=== PATIENT | female | born 1975 | race Caucasian/White ===

== ENCOUNTER 2022-11-24 15:54 | Emergency (ER) | payer MEDICAID ==
[~2022-11-24] VITALS: Ht 160 cm; Wt 78.5 kg
[2022-11-24 16:09] VITALS: BP_SYST 132; PULSE 86; RESP 16; TEMP 98; O2SAT 97
[2022-11-24 18:19] LABS: BASOPHILS # (AUTO) 0.2 K/uL (0.0-0.2); BASOPHILS % (AUTO) 1.5 % (0.0-2.0); EOSINOPHILS # (AUTO) 0.2 K/uL (0.0-0.4); EOSINOPHILS % (AUTO) 2.1 % (0.0-4.0); HEMATOCRIT 36.7 % (36-48); HEMOGLOBIN 11.8 g/dL (12.0-16.0); LYMPHOCYTES # (AUTO) 2.8 K/uL (1.0-5.5); LYMPHOCYTES % (AUTO) 26.6 % (20.5-51.5); MEAN CORPUSCULAR HEMOGLOBIN 28 pg (27-31); MEAN CORPUSCULAR HGB CONC 32 % (32-36); MEAN CORPUSCULAR VOLUME 87 fL (79.0-98.0); MONOCYTES # (AUTO) 0.8 K/uL (0.0-1.0); MONOCYTES % (AUTO) 7.2 % (1.7-9.3); NEUTROPHILS # (AUTO) 6.6 K/uL (1.8-7.7); NEUTROPHILS % (AUTO) 62.6 % (40.0-70.0); PLATELET COUNT (AUTO) 326 K/uL (130-430); RED CELL DISTRIBUTION WIDTH 14.3 % (9.0-15.0); WHITE BLOOD COUNT (AUTO) 10.6 K/uL (4.8-10.8)
[2022-11-24 18:28] LABS: CALCIUM 8.9 mg/dL (8.4-11.0); CREATININE 0.7 mg/dL (0.55-1.30)
[2022-11-24 18:34] LABS: ALBUMIN 3.8 g/dL (3.4-4.8); TOTAL BILIRUBIN 0.3 mg/dL (0.0-1.0)
--- NOTE | 2022-11-24 19:00 | NUR ---
with patient for MSE.
--- NOTE | 2022-11-24 19:00 | NUR ---
Patient placed back in waiting room after MSE.
[2022-11-24] MEDS ORDERED: CYCLOBENZAPRINE HCL 10 MG TABLET (FLEXERIL) PO ONE (19:30)
[2022-11-24] MEDS ORDERED: KETOROLAC TROMETHAMINE 30 MG VIAL IM ONE (19:30)
[2022-11-24 19:36] LABS: BILIRUBIN,URINE NEGATIVE (NEGATIVE); BLOOD, URINE 1+ (NEGATIVE); COLOR,URINE YELLOW (YELLOW); GLUCOSE,URINE NEGATIVE (NEGATIVE); KETONES,URINE NEGATIVE (NEGATIVE); LEUKOCYTE ESTERASE ,URINE NEGATIVE (NEGATIVE); NITRITE, URINE NEGATIVE (NEGATIVE); PH,URINE 5.5 (5.0-8.0); PROTEIN URINE NEGATIVE (NEGATIVE); UROBILINOGEN,URINE 0.2 (0.2-1.0)
[2022-11-24 19:38] LABS: CLARITY/URINE SLIGHTLY CLOUDY (CLEAR)
[2022-11-24 19:45] LABS: HCG,QUAL RESULT NEGATIVE (NEGATIVE)
[2022-11-24] MEDS ORDERED: ACET-2634 PO (20:16)
[2022-11-24] MEDS ORDERED: NAPR-1172 PO (20:16)
[2022-11-24] MEDS ORDERED: CYCL10TA24 PO (20:16)
[2022-11-24] MEDS ORDERED: LIDO-19 TP (20:16)
[2022-11-24 20:23] LABS: BACTERIA,URINE RARE /HPF (None Seen); WBC,URINE NONE SEEN /HPF (0-3); YEAST,URINE Few /HPF (None Seen)
[2022-11-24 20:39] VITALS: BP_SYST 132; PULSE 86; RESP 16; TEMP 98; O2SAT 97
--- NOTE | 2022-11-24 20:39 | NUR ---
Patient given written and verbal discharge instructions and verbalizes understanding. ER DR. CAMPOS discussed with patient the results and treatment provided. Patient in stable condition. ID arm band removed. Rx of naproxen, lidocaine patch, flexeril, and tylenol given. Patient educated on pain management and to follow up with PMD. Pain Scale 0. Opportunity for questions provided and answered. Medication side effect fact sheet provided.
== END 2022-11-24 20:39 | disposition home or self-care (01) ==
LOC: SED 15:54
DX: G89.29 Other chronic pain (principal); M54.50 Low back pain, unspecified; I88.0 Nonspecific mesenteric lymphadenitis; R10.31 Right lower quadrant pain; M79.661 Pain in right lower leg; Z87.442 Personal history of urinary calculi; Z87.42 Personal history of other diseases of the female genital tract; Z79.899 Other long term (current) drug therapy
CPT/HCPCS: 99285; 74176; 80053; 81000; 84703; 85025; 36415; 76376; 96372; J1885